=== PATIENT | female | born 2005 | race Hispanic/Latino ===

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

== ENCOUNTER 2024-06-08 12:26 | Emergency (ER) | payer SELFPAY ==
[2024-06-08] MEDS ORDERED: Ondansetron ODT 4 MG TAB ONE (13:01)
[2024-06-08 13:06] LABS: #Basophils 0.03 10x3/uL (0.0-0.2); #Eosinophils Less than 0.03 10x3/uL (0.0-0.7); %Basophils 0.3 % (0.0-1.0); %Lymphocytes 33.7 % (21.0-51.0); %Monocytes 4.6 % (0.0-10.0); %Neutrophils 61.2 % (42.0-75.0); Hematocrit 42.3 % (36.0-47.0); Hemoglobin 14.6 g/dL (12.0-16.0); Mean Corpuscular HGB CONC 34.5 g/dL (32.0-36.0); Mean Corpuscular Hemoglobin 27.9 pg (27.0-31.0); Mean Corpuscular Volume 80.7 fL (78.0-98.0); Mean Platelet Volume 9.8 fL (7.4-10.4); Platelet Count 424 10x3/uL (130-400); RBC Distribution Width 13.3 % (11.5-14.5); Red Blood Cell (RBC) Count 5.24 mill/uL (4.20-5.40)
[2024-06-08 13:27] LABS: Bacteria/HPF None Seen HPF (None Seen); Bilirubin Negative (Negative); Blood, Urine 2+ (Negative); CAUTI Indications for Culture Alt mental st,lethar; Clarity Clear (Clear); Glucose, Urine (Dipstick) Normal (Negative); Ketone, Urine 40 mg/dL (Negative); Leukocyte Negative Leu/uL (Negative); Nitrite Negative (Negative); Protein, Urine (Dipstick) 20 mg/dL (Neg-Trace); RBC/HPF 0-3 HPF (0-3); Specific Gravity, Urine 1.026 (1.002-1.036); Squamous Epithelial 0-3 HPF (0-3); Urobilinogen Normal mg/dL (Less than 2); WBC/HPF 0-3 HPF (0-3)
[2024-06-08 13:30] LABS: ALT (SGPT) 40 U/L (8-55); AST (SGOT) 37 U/L (5-34); Albumin 4.5 g/dL (3.5-5.0); Alkaline Phosphatase 80 U/L (40-110); Anion Gap 17 mmol/L (10-20); BUN (Urea Nitrogen) 16 mg/dL (7.0-18.7); Bilirubin, Total 0.9 mg/dL (0.2-1.2); Calc. Creatinine Clearance 0 mL/min (70-130); Calcium 9.9 mg/dL (7.8-10.44); Carbon Dioxide 21 mmol/L (22-29); Chloride 102 mmol/L (98-107); Estimated GFR 99; Glucose 103 mg/dL (70-105); Lipase 22 U/L (8-78); Potassium 3.2 mmol/L (3.5-5.1); Protein, Total 8.5 g/dL (6.0-8.3); Sodium 137 mmol/L (136-145)
[2024-06-08 13:31] LABS: BHCG - Serum Negative (NEGATIVE); Pregs Control Background? CLEAR/WHITE (CLR/WHITE); Pregs Control Bar Appear? YES (CONTROL BAR)
[2024-06-08 13:33] LABS: Urine Culture Reflex No No
== END 2024-06-08 14:08 | disposition home or self-care (01) ==
LOC: ERS 12:26
DX: R11.2 Nausea with vomiting, unspecified (principal)
CPT/HCPCS: 36415; 80053; 81001; 83690; 84703; 85025; 99283; Q0162

== ENCOUNTER 2025-04-16 23:49 | Emergency (ER) | payer SELFPAY ==
[2025-04-17 00:23] LABS: Pregnancy Test - Urine (BHCG) Negative (Negative); Pregu Control Background? CLEAR/WHITE (CLR/WHITE); Pregu Control Bar Appear? YES (CONTROL BAR)
[2025-04-17 00:24] LABS: Bacteria/HPF None Seen HPF (None Seen); CAUTI Indications for Culture Pelvic or flank pain; Glucose, Urine (Dipstick) Normal (Negative); Leukocyte Negative Leu/uL (Negative); Protein, Urine (Dipstick) 50 mg/dL (Neg-Trace); RBC/HPF 0-3 HPF (0-3); Specific Gravity, Urine 1.033 (1.002-1.036)
[2025-04-17 00:26] LABS: Urine Culture Reflex No No
[2025-04-17 00:27] LABS: #Basophils 0.03 10x3/uL (0.0-0.2); #Eosinophils Less than 0.03 10x3/uL (0.0-0.7); #Monocytes 0.25 10x3/uL (0.11-0.59); #Neutrophils 4.51 10x3/uL (1.40-6.50); %Basophils 0.5 % (0.0-1.0); %Eosinophils 0.0 % (0.0-10.0); %Lymphocytes 23.3 % (21.0-51.0); %Monocytes 4.0 % (0.0-10.0); %Neutrophils 72.0 % (42.0-75.0); Hematocrit 43.2 % (36.0-47.0); Hemoglobin 14.6 g/dL (12.0-16.0); Mean Corpuscular Hemoglobin 27.0 pg (27.0-31.0); Mean Corpuscular Volume 80.0 fL (78.0-98.0); Platelet Count 438 10x3/uL (130-400); Red Blood Cell (RBC) Count 5.40 mill/uL (4.20-5.40); White Blood Cell (WBC) Count 6.26 10x3/uL (4.8-10.8)
[2025-04-17 00:44] LABS: ALT (SGPT) 15 U/L (Less than 34); AST (SGOT) 42 U/L (11-34); Albumin 4.9 g/dL (3.1-4.5); Alkaline Phosphatase 65 U/L (40-110); Anion Gap 26 mmol/L (10-20); BUN (Urea Nitrogen) 19 mg/dL (7.0-18.7); Bilirubin, Total 1.1 mg/dL (0.3-1.2); Calc. Creatinine Clearance 0 mL/min (70-130); Calcium 10.3 mg/dL (7.8-10.44); Carbon Dioxide 21 mmol/L (22-29); Chloride 95 mmol/L (98-107); Globulin 3.9 g/dL (2.4-3.5); Glucose 104 mg/dL (70-105); Potassium 3.3 mmol/L (3.5-5.1); Sodium 139 mmol/L (136-145)
[2025-04-17] MEDS ORDERED: Metoclopramide HCl 10 MG (2 mL) VIAL ONE (01:14)
[2025-04-17 01:17] LABS: Lipase 32 U/L (8-78); Magnesium 2.3 mg/dL (1.6-2.6)
[2025-04-17 02:39] LABS: Actual Bicarbonate (HCO3v) 20.7 mEq/L (22-28); Base Excess -1.2 mEq/L (-2.0 to +3.0); Calcium, Ionized (venous) 1.11 mmol/L (1.16-1.32); Chloride (VBG) 95 mmol/L (98-106); Hematocrit-VBG 47 % (36.0-47.0); Hemoglobin (Hb) 15.9 g/dL (11.7-15.5); Potassium (VBG) 3.04 mmol/L (3.70-5.30); Sodium 138 mmol/L (133-146)
== END 2025-04-17 03:37 | disposition home or self-care (01) ==
LOC: ERS 23:49
DX: K80.50 Calculus of bile duct without cholangitis or cholecystitis without obstruction (principal); K82.8 Other specified diseases of gallbladder; E86.0 Dehydration; R11.2 Nausea with vomiting, unspecified
CPT/HCPCS: 36415; 76705; 80053; 81001; 81025; 82805; 83605; 83690; 83735; 85025; 96365; 96366; 96375; J2270; J2765